=== PATIENT | male | born 1960 | race Caucasian/White ===

== ENCOUNTER 2019-12-10 07:00 | Outpatient (CLI) | payer OTHER | END 2019-12-10 23:59 | disposition home or self-care (01) | LOC: COV 07:00 | PROVIDERS: ATTEND Family Medicine | DX: Z20.828 Contact with and (suspected) exposure to other viral communicable diseases (principal) ==

== ENCOUNTER 2023-01-02 08:25 | Outpatient (CLI) | payer OTHER ==
--- NOTE | 2023-01-02 09:07 | Sleep Patient Instructions ---
Sleep Center Visit Summary - Patient Visit Information Reason for Visit: Initial consultation - Patient Instructions Additional Instructions: You will continue with CPAP therapy with pressure set at 10-16 cmH2O. A supply prescription will be updated with your DME with the added new machine update and transfer of supply care added. We encourage you to continue to try to lose weight. Please follow up with the sleep care office one month after obtaining new device. - Clinic Information Contact: [facility] [address] [place] [address] [email or web address] T: [phone]
--- NOTE | 2023-01-02 09:14 | SLEEP CARE CONSULTATION ---
Information from patient questionnaire entered by Purvi León. I have reviewed and concur with the information entered by Purvi León. This document represents the service I personally performed and the decisions made by me, Rebecca Limon ARNP. History of Present Illness Service Date and Time: 01/02/2023 0825 Reason for Visit: New patient, Previously diagnosed sleep apnea, sleep apnea on CPAP therapy Chief Complaint: reports: Insomnia Date of Onset: 30YRS Usual bedtime: 8PM Time it takes to fall asleep: 3MINS Snores at night: Yes Observed to quit breathing while asleep: Yes Sleeps alone due to snoring: Yes Reasons for waking at night: reports: Bathroom Toss, Turn, or Twitch while sleeping: Yes Recalls having dreams: Yes Usually gets out of bed at: 7AM Feels refreshed in the morning: Yes Morning headache: No Sleepy or fatigued during the day: Yes Ever fallen asleep while driving: No Takes day naps: No Dreams during day naps: No Prior sleep studies: Yes Additional HPI information: JENNIFER AVINA was previously diagnosed to have moderate, AHI 26.7, obstructive sleep apnea-hypopnea syndrome as seen in sleep study done at [facility] on 01/04/2019 and comes in today establish care for CPAP therapy. A prior study done in 02/19/2009 showing severe obstructive sleep apnea with a AHI of 51.3. - Parasomnia Symptoms Ever been unable to move upon waking from sleep: Yes Walks in sleep: No Talks in sleep: No Ever acted out dreams in sleep: No Ever felt weak in the knees when startled or emotional: No Bothered by creepy, crawly, restless sensations in legs: No Problems with memory or concentration: No CPAP Compliance Data - Data Reviewed with Patient Average duration of nightly device use: 10 hours 20 minutes Compliance rate %: 53 (49/ days used on this machine) Current pressure setting (cmH2O): 10-16 Average residual AHI: 1.4 Central apnea: 0.1 Obstructive apnea: 0.6 Average large leak: 0.8 L/min Compliance data discussion: He has a ResMed Airsense 10 that he uses (his back up/travel is also an Airsense 10). He has been getting supplies from [employer]. He is using a nasal pillows mask and alternates with a nasal cushion mask. He prefers the nasal cushion, small cu shion, Dreamwear. Subjective Missed days of use due to: reports: travel (using different CPAP on vacation) Patient concerns: denies: aerophagia, mask discomfort, air blowing in eyes, mask leak noise, condensation in mask/hose, nasal congestion, dry mouth, nose, throat, epistaxis Observed to snore while using device: No Current pressure setting perceived as: comfortable On therapy, patient: reports: sleeping better, awakening more refreshed, being more awake and alert during the day, more rested overall. denies: drowsiness while driving Initial [place] Sleepiness Scale score: 13 (12/17/22) Past Medical History Past Medical History: reports: Hypertension, Congestive Heart Failure, Diabetes, Coronary Heart Disease, Fibromyalgia, Anemia (iron deficiency), Anxiety (HUMERA), Depression, Other Social History The patient's occupation is a RETIRED. Patient is Single and lives in [place]. Have you smoked in the past 12 months: No Years of smokin Quit date: 2019 Alcohol use: Yes Alcohol amount and frequency: 4-5 beers per day Caffeine use: Yes Caffeine amount and frequency: 1-2 drinks daily Family History Family history of sleep disordered breathing: Yes Family Hx Sleep Apnea: Father: Snoring, Sibling: Sleep apnea - Treated Allergies and Home Medications Known drug allergies: No Drug allergies reviewed: Yes Home medication list reviewed: Yes Allergy and home medication list: Home Medications Medication Instructions Recorded Confirmed Last Taken Type Aspirin [[place]] See Rx Instructions .ROUTE .COMPLEX 01/02/23 01/02/23 Unknown History Atorvastatin Calcium [Lipitor] See Rx Instructions .ROUTE .COMPLEX 01/02/23 01/02/23 Unknown History LORazepam [Lorazepam] See Rx Instructions .ROUTE .COMPLEX 01/02/23 01/02/23 Unknown History Lisinopril [Zestril] See Rx Instructions .ROUTE .COMPLEX 01/02/23 01/02/23 Unknown History Oxycodone HCl/Acetaminophen See Rx Instructions .ROUTE .COMPLEX 01/02/23 01/02/23 Unknown History [Oxycodone-Acetaminophen 5-325] Pantoprazole [Protonix] See Rx Instructions .ROUTE .COMPLEX 01/02/23 01/02/23 Unknown History Sertraline HCl See Rx Instructions .ROUTE .COMPLEX 01/02/23 01/02/23 Unknown History Review of Systems Cardiovascular: reports: high blood pressure Gastrointestinal: denies: heartburn Neurological: denies: headaches Psychiatric: reports: anxiety Ear/Nose/Throat: reports: tonsillectomy Musculoskeletal: reports: joint pain, back pain, mobility problems Physical Exam Vital signs obtained and entered by: PURVI Thomas MA Blood Pressure: 144/96 (LEFT ARM) Cuff size: regular Heart Rate: 99 O2 Saturation: 96 Height: 5 ft 10 in Weight: 252 lb 9.6 oz Body Mass Index: 36.2 BMI Classification: Obese Neck circumference: 20.5 Mouth and throat: narrow oropharynx Soft palate: long Hard palate: normal Uvula visualization: 25% Mallampati Class III Tongue: enlarged in size with teeth daniels on lateral edges Tonsils: absent bilaterally Neck: normal w/o lymphadenopathy or thyromegaly Heart: regular rate and rhythm Lungs: clear bilaterally Impression and Plan 1. Obstructive Sleep Apnea-Hypopnea Syndrome, severe, with good treatment compliance and good apnea control. On CPAP therapy, the patient has better sleep quality and is more rested overall. He states his ResMed Airsense 10 is due for replacement. He would also like to change to a more local DME supplier. The patients CPAP is over 5 years old and of reasonable use. Thus, the CPAP will be updated. Compliance guidelines for new device and follow up discussed. Patient was informed that another DME can be used. I will have my high school coordinator inform of DME options. A DWO prescription will then be made. Patient advised to contact this office if further supply problems. Patient's apnea severity and rationale for treatment to reduce apnea, improve sleep quality and reduce cardiovascular and cerebrovascular events was reviewed. I also reviewed the benefit of consistent device use of CPAP for hypertension, cardiac disease (CHF, CHD), diabetes and fibromyalgia. 2. Obesity, unspecified. Currently patients BMI is 36.2. Obesity increases the risk of apnea, CPAP pressure requirements and overall health risks especially cardiovascular and diabetes. Thus patient is advised to lose weight. * Continue auto CPAP pressure at 10-16 cmH2O * Transfer DME * Update machine * Update supply prescription * Notify me if snoring with mask or feeling that the pressure is too much or too little * Attempt to lose weight * Call this office if any problems using CPAP * Return for follow up one month after obtaining new device, or sooner if concerns arise Counseling Topics: Spare mask, Weight loss health impact Prescriptions: Auto CPAP (update device), Device supplies Visit Type: In Office Time Spent with Patient (minutes): 32 Provider Statement: I spent 100% of the Face to Face Visit with the patient with greater than 50% spent counseling the patient and coordination of care.
[2023-01-02 09:21] VITALS: BP 144/96; O2SAT 96
== END 2023-01-02 08:26 | disposition home or self-care (01) ==
LOC: SC 08:25
PROVIDERS: ATTEND Nurse Practitioner Family
DX: G47.33 Obstructive sleep apnea (adult) (pediatric) (principal); E66.9 Obesity, unspecified; Z68.36 Body mass index [BMI] 36.0-36.9, adult
CPT/HCPCS: 99203; 99212